=== PATIENT | male | born 1960 | race Caucasian/White ===

== ENCOUNTER → 2016-07-12 | Outpatient (CLI) | payer BC | END | disposition short-term general hospital (02) | LOC: CLCARD 11:16 | DX: I48.91 Unspecified atrial fibrillation (principal); I10 Essential (primary) hypertension; I25.119 Atherosclerotic heart disease of native coronary artery with unspecified angina pectoris; E78.5 Hyperlipidemia, unspecified; Z79.899 Other long term (current) drug therapy; Z95.5 Presence of coronary angioplasty implant and graft ==

== ENCOUNTER 2016-07-14 14:04 | Emergency (ER) | payer BC ==
[~2016-07-14] VITALS: Ht 190.5 cm; Wt 115.7 kg
== END 2016-07-14 14:47 | disposition short-term general hospital (02) ==
LOC: ER 14:04
DX: I48.91 Unspecified atrial fibrillation (principal)